=== PATIENT | female | born 1965 | race Caucasian/White ===

== ENCOUNTER 2019-04-08 07:33 | Day surgery (SDC) | payer OTHER, MEDICARE ==
[~2019-04-08] VITALS: Ht 152.4 cm; Wt 73.5 kg
[~2019-04-08 07:33] MED LIST: ALBU8.5H8 INH; ATOR-2 PO; LAMO150T3 PO; PRED5TAB PO; SERT100T32 PO
[2019-04-08 08:23] VITALS: BP 124/78
[2019-04-08] MEDS ORDERED: LACTATED RINGERS 1,000 ML IV SCH (08:24)
[2019-04-08] MEDS ORDERED: GABAPENTIN 300 MG CAPSULE PO STA (08:25)
[2019-04-08] MEDS ORDERED: ACETAMINOPHEN 500 MG TABLET PO STA (08:25)
[2019-04-08] MEDS ORDERED: FENTANYL PF 250 MCG/5ML ONE (09:09)
[2019-04-08] MEDS ORDERED: MIDAZOLAM 1 MG/ML, 2ML ONE (09:09)
[2019-04-08] MEDS ORDERED: LABETALOL 5MG/ML, 20ML IV PRN (09:30)
[2019-04-08] MEDS ORDERED: OXYcodone 5 MG/5 ML ORAL.SOL UDC PO PRN (09:30)
[2019-04-08] MEDS ORDERED: HALOPERIDOL 5 MG/ML IV PRN (09:30)
[2019-04-08] MEDS ORDERED: HYDROmorphone 2 MG/ML, 1ML IVPush PRN (09:30)
[2019-04-08] MEDS ORDERED: MEPERIDINE/PF 25MG/ML,1ML IVPush PRN (09:30)
[2019-04-08] MEDS ORDERED: PROMETHAZINE 25 MG/ML, 1ML IV PRN (09:30)
[2019-04-08] MEDS ORDERED: hydrALAzine 20 MG/ML, 1ML IV PRN (09:30)
[2019-04-08] MEDS ORDERED: BUPIVACAINE/PF 0.25% ONE (09:50)
[2019-04-08] MEDS ORDERED: EPINEPHRINE 1 MG/ML, 1ML ONE (09:56)
[2019-04-08] MEDS ORDERED: ONDANSETRON 2MG/ML, 2ML ONE ×2 (09:56→10:27)
[2019-04-08] MEDS ORDERED: BUPIVACAINE/PF-EPI 0.25% 1:200K INFIL ONE (10:23)
[2019-04-08] MEDS ORDERED: CEFAZOLIN 1,000 MG ONE (10:27)
[2019-04-08] MEDS ORDERED: GLYCOPYRROLATE 0.2MG/1ML, 5ML ONE (10:27)
[2019-04-08] MEDS ORDERED: SUCCINYLCHOLINE 20 MG/ML, 10ML ONE (10:27)
[2019-04-08] MEDS ORDERED: NEOSTIGMINE 1 MG/ML, 10ML ONE (10:27)
[2019-04-08] MEDS ORDERED: PROPOFOL 10 MG/ML, 20ML ONE (10:27)
[2019-04-08] MEDS ORDERED: ROCURONIUM 10MG/ML,5ML ONE (10:27)
[2019-04-08] MEDS ORDERED: DEXAMETHASONE 4 MG/ML, 1ML ONE (10:27)
[2019-04-08] MEDS ORDERED: FENTANYL PF 100 MCG/2ML ONE ×2 (10:43→11:11)
[2019-04-08] MEDS: FENTANYL PF 100 MCG/2ML IV PRN ×3 (10:46→11:14)
[2019-04-08] MEDS ORDERED: OXYcodone 5 MG/5 ML ORAL.SOL UDC ONE (10:59)
== END 2019-04-08 13:30 | disposition home or self-care (01) ==
LOC: OUT 07:33
PROVIDERS: ATTEND Otolaryngology
DX: J34.1 Cyst and mucocele of nose and nasal sinus (principal); J32.0 Chronic maxillary sinusitis; J34.89 Other specified disorders of nose and nasal sinuses; E78.00 Pure hypercholesterolemia, unspecified; Z90.710 Acquired absence of both cervix and uterus; Z88.1 Allergy status to other antibiotic agents; Z88.8 Allergy status to other drugs, medicaments and biological substances
CPT/HCPCS: 30117; 31225; 87015; 87070; 87075; 87102; 87116; 87205; 87206; 88305; J0171; J0330; J0690; J1100; J2250; J2405; J2704; J2710; J3010; J3490; J7120